=== PATIENT | male | born 1980 | race Caucasian/White ===

== ENCOUNTER 2017-04-19 23:08 | Emergency (ER) | payer OTHER ==
[2017-04-20] MEDS: KETOROLAC 60 MG INJ IM (03:35)
== END 2017-04-20 03:51 | disposition home or self-care (01) ==
LOC: FTE 23:08
DX: S39.012A Strain of muscle, fascia and tendon of lower back, initial encounter (principal); S16.1XXA Strain of muscle, fascia and tendon at neck level, initial encounter; V49.40XA Driver injured in collision with unspecified motor vehicles in traffic accident, initial encounter; Z87.891 Personal history of nicotine dependence
CPT/HCPCS: 99284; Z7502

== ENCOUNTER 2018-06-04 02:49 | Emergency (ER) | payer OTHER ==
[2018-06-04] MEDS: HYDROCODONE/APAP (10/325) TAB PO (03:20)
[2018-06-04] MEDS: KETOROLAC 30 MG INJ IM (05:39)
== END 2018-06-04 05:50 | disposition home or self-care (01) ==
LOC: FTE 02:49
DX: S06.0X0A Concussion without loss of consciousness, initial encounter (principal); S00.83XA Contusion of other part of head, initial encounter; S10.93XA Contusion of unspecified part of neck, initial encounter; S30.0XXA Contusion of lower back and pelvis, initial encounter; S20.219A Contusion of unspecified front wall of thorax, initial encounter; V43.52XA Car driver injured in collision with other type car in traffic accident, initial encounter; Z87.891 Personal history of nicotine dependence
CPT/HCPCS: 70450; 71046; 72100; 72125; 96372; 99285-25